=== PATIENT | female | born 1930 | race Two or more races ===

== ENCOUNTER 2018-01-28 06:17 | Day surgery (SDC) | payer OTHER | END 2018-01-28 14:54 | disposition home or self-care (01) | LOC: AMB-ENDOS 06:17 → CIR.AMB 11:30 → AMB-ENDOS 14:54 | DX: D12.2 Benign neoplasm of ascending colon (principal); K57.30 Diverticulosis of large intestine without perforation or abscess without bleeding; K64.8 Other hemorrhoids ==

== ENCOUNTER 2019-02-24 06:30 | Day surgery (SDC) | payer OTHER | END 2019-02-24 11:00 | disposition home or self-care (01) | LOC: AMB-ENDOS 06:30 | DX: D12.0 Benign neoplasm of cecum (principal) ==